=== PATIENT | male | born 1950 | race Caucasian/White ===

== ENCOUNTER 2025-02-16 19:53 | Inpatient (IN) | payer OTHER ==
[~2025-02-16 19:53] MED LIST: Iopamidol-370 76% 500 ML MDV (1 ML CHARGE) ONE
[2025-02-16 20:18] LABS: #Basophils 0.11 10x3/uL (0.0-0.2); #Eosinophils 0.18 10x3/uL (0.0-0.7); #Monocytes 0.41 10x3/uL (0.11-0.59); #Neutrophils 3.53 10x3/uL (1.40-6.50); %Basophils 1.5 % (0.0-1.0); %Eosinophils 2.5 % (0.0-10.0); %Lymphocytes 40.7 % (21.0-51.0); %Monocytes 5.7 % (0.0-10.0); %Neutrophils 49.3 % (42.0-75.0); Hematocrit 38.5 % (42.0-52.0); Hemoglobin 13.0 g/dL (14.0-18.0); Mean Corpuscular Hemoglobin 29.8 pg (27.0-31.0); Mean Corpuscular Volume 88.3 fL (78.0-98.0); Platelet Count 185 10x3/uL (130-400); Red Blood Cell (RBC) Count 4.36 mill/uL (4.70-6.10); White Blood Cell (WBC) Count 7.17 10x3/uL (4.8-10.8)
[2025-02-16 20:42] LABS: ALT (SGPT) 21 U/L (Less than 45); AST (SGOT) 33 U/L (11-34); Albumin 4.1 g/dL (3.1-4.5); Alkaline Phosphatase 83 U/L (40-110); Anion Gap 8 mmol/L (10-20); BUN (Urea Nitrogen) 14 mg/dL (8.4-25.7); Bilirubin, Total 0.5 mg/dL (0.3-1.2); Calc. Creatinine Clearance 0 mL/min (70-130); Calcium 9.4 mg/dL (7.8-10.44); Carbon Dioxide 24 mmol/L (23-31); Chloride 103 mmol/L (98-107); Globulin 2.7 g/dL (2.4-3.5); Glucose 425 mg/dL (83-110); Potassium 4.0 mmol/L (3.5-5.1); Sodium 131 mmol/L (136-145)
[2025-02-16 21:49] LABS: Bacteria/HPF None Seen HPF (None Seen); CAUTI Indications for Culture Alt mental st,lethar; Glucose, Urine (Dipstick) Greater than 1000 mg/dL (Negative); Leukocyte Negative Leu/uL (Negative); Protein, Urine (Dipstick) Negative (Neg-Trace); RBC/HPF 0-3 HPF (0-3); Specific Gravity, Urine 1.040 (1.002-1.036); WBC/HPF 0-3 HPF (0-3)
[2025-02-16 21:52] LABS: Urine Culture Reflex No No
[2025-02-16] MEDS ORDERED: Ondansetron PF 4 MG/2 ML Vial IVP PRN (23:33)
[2025-02-16] MEDS ORDERED: Glucagon 1 MG/ML KIT IM PRN (23:39)
[2025-02-16] MEDS ORDERED: Dextrose 50% Abboject 50 ML SYRINGE SLOW IVP PRN (23:39)
[2025-02-17] MEDS: Acetaminophen 325 MG TAB PO PRN (01:39)
[2025-02-17] MEDS: Melatonin 3 MG TAB PO PRN (01:40)
[2025-02-17 01:56] VITALS: BMI 52.1
[2025-02-17 04:28] LABS: #Basophils 0.08 10x3/uL (0.0-0.2); #Eosinophils 0.18 10x3/uL (0.0-0.7); #Monocytes 0.37 10x3/uL (0.11-0.59); #Neutrophils 3.09 10x3/uL (1.40-6.50); %Basophils 1.2 % (0.0-1.0); %Eosinophils 2.6 % (0.0-10.0); %Lymphocytes 46.0 % (21.0-51.0); %Monocytes 5.3 % (0.0-10.0); %Neutrophils 44.6 % (42.0-75.0); Hematocrit 36.8 % (42.0-52.0); Hemoglobin 12.2 g/dL (14.0-18.0); Mean Corpuscular Hemoglobin 29.6 pg (27.0-31.0); Mean Corpuscular Volume 89.3 fL (78.0-98.0); Platelet Count 171 10x3/uL (130-400); Red Blood Cell (RBC) Count 4.12 mill/uL (4.70-6.10); White Blood Cell (WBC) Count 6.92 10x3/uL (4.8-10.8)
[2025-02-17 04:47] LABS: Anion Gap 12 mmol/L (10-20); BUN (Urea Nitrogen) 12 mg/dL (8.4-25.7); Calc. Creatinine Clearance 126 mL/min (70-130); Calcium 9.2 mg/dL (7.8-10.44); Carbon Dioxide 27 mmol/L (23-31); Cardiac Risk 7.8 (Less than 4.5); Chloride 98 mmol/L (98-107); Cholesterol 318 mg/dl (< 200 Desired); Glucose 302 mg/dL (83-110); HDL Cholesterol 41 mg/dL (>60 Neg Risk); LDL Cholesterol, Calculated 245 mg/dL; Potassium 3.7 mmol/L (3.5-5.1); Sodium 133 mmol/L (136-145); Triglycerides 160 mg/dL (Less than 150)
[2025-02-17] MEDS: Divalproex Sodium DR 500 MG TAB PO SCH (10:03)
[2025-02-17] MEDS: Aspirin 81 mg Enteric Coated Tablet PO SCH (10:03)
[2025-02-17] MEDS: Insulin NPH Human Isophane 100 UNITS/ML (10 ML VIAL) SC SCH ×2 (15:39→21:13)
[2025-02-18 04:38] LABS: #Basophils 0.07 10x3/uL (0.0-0.2); #Eosinophils 0.19 10x3/uL (0.0-0.7); #Monocytes 0.34 10x3/uL (0.11-0.59); #Neutrophils 2.45 10x3/uL (1.40-6.50); %Basophils 1.1 % (0.0-1.0); %Eosinophils 3.0 % (0.0-10.0); %Lymphocytes 51.1 % (21.0-51.0); %Monocytes 5.4 % (0.0-10.0); %Neutrophils 39.1 % (42.0-75.0); Hematocrit 37.6 % (42.0-52.0); Hemoglobin 12.4 g/dL (14.0-18.0); Mean Corpuscular Hemoglobin 30.0 pg (27.0-31.0); Mean Corpuscular Volume 90.8 fL (78.0-98.0); Platelet Count 180 10x3/uL (130-400); Red Blood Cell (RBC) Count 4.14 mill/uL (4.70-6.10); White Blood Cell (WBC) Count 6.28 10x3/uL (4.8-10.8)
[2025-02-18 04:52] LABS: Anion Gap 10 mmol/L (10-20); BUN (Urea Nitrogen) 12 mg/dL (8.4-25.7); Calc. Creatinine Clearance 113 mL/min (70-130); Calcium 9.6 mg/dL (7.8-10.44); Carbon Dioxide 30 mmol/L (23-31); Chloride 96 mmol/L (98-107); Glucose 268 mg/dL (83-110); Potassium 4.1 mmol/L (3.5-5.1); Sodium 132 mmol/L (136-145)
[2025-02-18] MEDS ORDERED: Nitroglycerin 0.4 MG TAB (25 Tab Bottle) SL PRN (11:03)
[2025-02-18] MEDS: Enoxaparin 40 MG (0.4 mL) SYRINGE SC SCH (12:22)
[2025-02-18] MEDS: Baclofen 10 MG TAB PO SCH ×2 (18:01→21:27)
[2025-02-18] MEDS: Aspirin 81 mg Enteric Coated Tablet PO SCH (21:21)
[2025-02-18] MEDS: Lactulose 20 GM (30 mL) UDCUP PO SCH (21:27)
[2025-02-19 08:50] LABS: #Basophils 0.11 10x3/uL (0.0-0.2); #Eosinophils 0.21 10x3/uL (0.0-0.7); #Monocytes 0.31 10x3/uL (0.11-0.59); #Neutrophils 2.37 10x3/uL (1.40-6.50); %Basophils 1.9 % (0.0-1.0); %Eosinophils 3.7 % (0.0-10.0); %Lymphocytes 46.8 % (21.0-51.0); %Monocytes 5.5 % (0.0-10.0); %Neutrophils 41.9 % (42.0-75.0); Hematocrit 40.4 % (42.0-52.0); Hemoglobin 13.2 g/dL (14.0-18.0); Mean Corpuscular Hemoglobin 29.9 pg (27.0-31.0); Mean Corpuscular Volume 91.4 fL (78.0-98.0); Platelet Count 179 10x3/uL (130-400); Red Blood Cell (RBC) Count 4.42 mill/uL (4.70-6.10); White Blood Cell (WBC) Count 5.66 10x3/uL (4.8-10.8)
[2025-02-19 09:05] LABS: Anion Gap 11 mmol/L (10-20); BUN (Urea Nitrogen) 13 mg/dL (8.4-25.7); Calc. Creatinine Clearance 127 mL/min (70-130); Calcium 9.1 mg/dL (7.8-10.44); Carbon Dioxide 32 mmol/L (23-31); Chloride 96 mmol/L (98-107); Glucose 221 mg/dL (83-110); Potassium 4.1 mmol/L (3.5-5.1); Sodium 135 mmol/L (136-145)
[2025-02-19] MEDS: Baclofen 10 MG TAB PO SCH (12:02)
[2025-02-19] MEDS: Lisinopril 2.5 MG TAB PO SCH (12:04)
[2025-02-20 04:11] LABS: #Basophils 0.09 10x3/uL (0.0-0.2); #Eosinophils 0.25 10x3/uL (0.0-0.7); #Monocytes 0.34 10x3/uL (0.11-0.59); #Neutrophils 2.63 10x3/uL (1.40-6.50); %Basophils 1.4 % (0.0-1.0); %Eosinophils 4.0 % (0.0-10.0); %Lymphocytes 46.5 % (21.0-51.0); %Monocytes 5.5 % (0.0-10.0); %Neutrophils 42.4 % (42.0-75.0); Hematocrit 39.2 % (42.0-52.0); Hemoglobin 12.9 g/dL (14.0-18.0); Mean Corpuscular Hemoglobin 29.8 pg (27.0-31.0); Mean Corpuscular Volume 90.5 fL (78.0-98.0); Platelet Count 178 10x3/uL (130-400); Red Blood Cell (RBC) Count 4.33 mill/uL (4.70-6.10); White Blood Cell (WBC) Count 6.21 10x3/uL (4.8-10.8)
[2025-02-20 04:47] LABS: Anion Gap 12 mmol/L (10-20); BUN (Urea Nitrogen) 15 mg/dL (8.4-25.7); Calc. Creatinine Clearance 134 mL/min (70-130); Calcium 9.0 mg/dL (7.8-10.44); Carbon Dioxide 28 mmol/L (23-31); Chloride 97 mmol/L (98-107); Glucose 186 mg/dL (83-110); Potassium 4.2 mmol/L (3.5-5.1); Sodium 133 mmol/L (136-145)
[2025-02-20] MEDS: Gabapentin 100 MG CAP PO SCH (14:33)
[2025-02-21 04:13] LABS: #Basophils 0.10 10x3/uL (0.0-0.2); #Eosinophils 0.32 10x3/uL (0.0-0.7); #Monocytes 0.51 10x3/uL (0.11-0.59); #Neutrophils 2.82 10x3/uL (1.40-6.50); %Basophils 1.4 % (0.0-1.0); %Eosinophils 4.3 % (0.0-10.0); %Lymphocytes 48.8 % (21.0-51.0); %Monocytes 6.9 % (0.0-10.0); %Neutrophils 38.2 % (42.0-75.0); Hematocrit 36.4 % (42.0-52.0); Hemoglobin 11.9 g/dL (14.0-18.0); Mean Corpuscular Hemoglobin 30.4 pg (27.0-31.0); Mean Corpuscular Volume 92.9 fL (78.0-98.0); Platelet Count 184 10x3/uL (130-400); Red Blood Cell (RBC) Count 3.92 mill/uL (4.70-6.10); White Blood Cell (WBC) Count 7.38 10x3/uL (4.8-10.8)
[2025-02-21 04:34] LABS: Anion Gap 12 mmol/L (10-20); BUN (Urea Nitrogen) 17 mg/dL (8.4-25.7); Calc. Creatinine Clearance 98 mL/min (70-130); Calcium 9.4 mg/dL (7.8-10.44); Carbon Dioxide 30 mmol/L (23-31); Chloride 95 mmol/L (98-107); Glucose 213 mg/dL (83-110); Potassium 4.0 mmol/L (3.5-5.1); Sodium 133 mmol/L (136-145)
[2025-02-21] MEDS: Albumin 25% 25 GM (100 mL) BOT IVPB SCH (06:39)
[2025-02-21 07:00] LABS: Magnesium 2.1 mg/dL (1.6-2.6)
[2025-02-21 07:40] LABS: #Basophils 0.09 10x3/uL (0.0-0.2); #Eosinophils 0.24 10x3/uL (0.0-0.7); #Monocytes 0.40 10x3/uL (0.11-0.59); #Neutrophils 2.52 10x3/uL (1.40-6.50); %Basophils 1.6 % (0.0-1.0); %Eosinophils 4.3 % (0.0-10.0); %Lymphocytes 41.2 % (21.0-51.0); %Monocytes 7.2 % (0.0-10.0); %Neutrophils 45.3 % (42.0-75.0); Hematocrit 36.6 % (42.0-52.0); Hemoglobin 11.6 g/dL (14.0-18.0); Mean Corpuscular Hemoglobin 30.2 pg (27.0-31.0); Mean Corpuscular Volume 95.3 fL (78.0-98.0); Platelet Count 154 10x3/uL (130-400); Red Blood Cell (RBC) Count 3.84 mill/uL (4.70-6.10); White Blood Cell (WBC) Count 5.56 10x3/uL (4.8-10.8)
[2025-02-21 07:42] LABS: Actual Bicarbonate (HCO3v) 24.8 mEq/L (22-28); Base Excess 2.0 mEq/L (-2.0 to +3.0); Calcium, Ionized (venous) 0.97 mmol/L (1.16-1.32); Chloride (VBG) 97 mmol/L (98-106); Hematocrit-VBG 39 % (42.0-52.0); Hemoglobin (Hb) 13.1 g/dL (12.6-17.4); Potassium (VBG) 4.06 mmol/L (3.70-5.30); Sodium 131 mmol/L (133-146)
[2025-02-21 07:58] LABS: ALT (SGPT) 17 U/L (Less than 45); AST (SGOT) 26 U/L (11-34); Albumin 3.6 g/dL (3.1-4.5); Alkaline Phosphatase 66 U/L (40-110); Anion Gap 13 mmol/L (10-20); BUN (Urea Nitrogen) 16 mg/dL (8.4-25.7); Bilirubin, Total 0.5 mg/dL (0.3-1.2); Calc. Creatinine Clearance 107 mL/min (70-130); Calcium 9.1 mg/dL (7.8-10.44); Carbon Dioxide 26 mmol/L (23-31); Chloride 98 mmol/L (98-107); Globulin 2.5 g/dL (2.4-3.5); Glucose 193 mg/dL (83-110); Potassium 4.2 mmol/L (3.5-5.1); Sodium 133 mmol/L (136-145)
[2025-02-21 09:44] LABS: T4 Less than 2.00 ug/dL (4.87-11.72); Thyroid Stimulating Hormone 50.3792 uIU/mL (0.35-4.94)
[2025-02-21 10:25] LABS: Bacteria/HPF None Seen HPF (None Seen); CAUTI Indications for Culture Alt mental st,lethar; Glucose, Urine (Dipstick) Normal (Negative); Leukocyte Negative Leu/uL (Negative); Protein, Urine (Dipstick) Negative (Neg-Trace); RBC/HPF 0-3 HPF (0-3); Specific Gravity, Urine 1.003 (1.002-1.036); WBC/HPF 0-3 HPF (0-3)
[2025-02-21 10:38] LABS: Urine Culture Reflex No No
[2025-02-21] MEDS: metFORMIN XR 500 MG ER.TAB PO SCH (22:47)
[2025-02-21] MEDS: Enoxaparin 40 MG (0.4 mL) SYRINGE SC SCH (22:49)
[2025-02-22 03:58] LABS: #Basophils 0.08 10x3/uL (0.0-0.2); #Eosinophils 0.28 10x3/uL (0.0-0.7); #Monocytes 0.44 10x3/uL (0.11-0.59); #Neutrophils 3.30 10x3/uL (1.40-6.50); %Basophils 1.1 % (0.0-1.0); %Eosinophils 4.0 % (0.0-10.0); %Lymphocytes 41.8 % (21.0-51.0); %Monocytes 6.2 % (0.0-10.0); %Neutrophils 46.6 % (42.0-75.0); Hematocrit 37.8 % (42.0-52.0); Hemoglobin 12.0 g/dL (14.0-18.0); Mean Corpuscular Hemoglobin 29.7 pg (27.0-31.0); Mean Corpuscular Volume 93.6 fL (78.0-98.0); Platelet Count 179 10x3/uL (130-400); Red Blood Cell (RBC) Count 4.04 mill/uL (4.70-6.10); White Blood Cell (WBC) Count 7.08 10x3/uL (4.8-10.8)
[2025-02-22 04:10] LABS: Anion Gap 12 mmol/L (10-20); BUN (Urea Nitrogen) 15 mg/dL (8.4-25.7); Calc. Creatinine Clearance 119 mL/min (70-130); Calcium 9.1 mg/dL (7.8-10.44); Carbon Dioxide 30 mmol/L (23-31); Chloride 98 mmol/L (98-107); Glucose 192 mg/dL (83-110); Potassium 3.8 mmol/L (3.5-5.1); Sodium 136 mmol/L (136-145)
[2025-02-22 10:47] LABS: Actual Bicarbonate (HCO3a) 25.5 mEq/L (22-28); Base Excess (BEa) 0.7 mEq/L (-2.0 to +3.0); CO2 Tension 41.2 mmHg (35.0-45.0); Calcium, Ionized (arterial) 1.16 mmol/L (1.12-1.30); Hematocrit-ABG 38 % (42.0-52.0); Hemoglobin (Hb) 13.0 g/dL (14.0-18.0); O2 Tension (PaO2), arterial 131.6 mmHg (> 70.0); Potassium - ABG Lab 3.97 mmol/L (3.70-5.30); pH, Arterial 7.409 (7.35-7.45)
[2025-02-22 10:54] LABS: ALV-art Gradient 66.450 mmHg (0-20); Puncture Site RR
[2025-02-23 04:00] LABS: #Basophils 0.09 10x3/uL (0.0-0.2); #Eosinophils 0.20 10x3/uL (0.0-0.7); #Monocytes 0.41 10x3/uL (0.11-0.59); #Neutrophils 2.31 10x3/uL (1.40-6.50); %Basophils 1.5 % (0.0-1.0); %Eosinophils 3.2 % (0.0-10.0); %Lymphocytes 51.0 % (21.0-51.0); %Monocytes 6.6 % (0.0-10.0); %Neutrophils 37.4 % (42.0-75.0); Hematocrit 38.7 % (42.0-52.0); Hemoglobin 12.0 g/dL (14.0-18.0); Mean Corpuscular Hemoglobin 29.6 pg (27.0-31.0); Mean Corpuscular Volume 95.3 fL (78.0-98.0); Platelet Count 183 10x3/uL (130-400); Red Blood Cell (RBC) Count 4.06 mill/uL (4.70-6.10); White Blood Cell (WBC) Count 6.18 10x3/uL (4.8-10.8)
[2025-02-23 04:16] LABS: Anion Gap 12 mmol/L (10-20); BUN (Urea Nitrogen) 19 mg/dL (8.4-25.7); Calc. Creatinine Clearance 97 mL/min (70-130); Calcium 9.4 mg/dL (7.8-10.44); Carbon Dioxide 31 mmol/L (23-31); Chloride 98 mmol/L (98-107); Glucose 174 mg/dL (83-110); Potassium 4.1 mmol/L (3.5-5.1); Sodium 137 mmol/L (136-145)
[2025-02-24 04:18] LABS: #Basophils 0.08 10x3/uL (0.0-0.2); #Eosinophils 0.15 10x3/uL (0.0-0.7); #Monocytes 0.49 10x3/uL (0.11-0.59); #Neutrophils 4.25 10x3/uL (1.40-6.50); %Basophils 1.0 % (0.0-1.0); %Eosinophils 1.9 % (0.0-10.0); %Lymphocytes 35.2 % (21.0-51.0); %Monocytes 6.4 % (0.0-10.0); %Neutrophils 55.2 % (42.0-75.0); Hematocrit 35.4 % (42.0-52.0); Hemoglobin 11.5 g/dL (14.0-18.0); Mean Corpuscular Hemoglobin 30.3 pg (27.0-31.0); Mean Corpuscular Volume 93.4 fL (78.0-98.0); Platelet Count 162 10x3/uL (130-400); Red Blood Cell (RBC) Count 3.79 mill/uL (4.70-6.10); White Blood Cell (WBC) Count 7.70 10x3/uL (4.8-10.8)
[2025-02-24 04:34] LABS: Anion Gap 12 mmol/L (10-20); BUN (Urea Nitrogen) 17 mg/dL (8.4-25.7); Calc. Creatinine Clearance 124 mL/min (70-130); Calcium 8.9 mg/dL (7.8-10.44); Carbon Dioxide 28 mmol/L (23-31); Chloride 100 mmol/L (98-107); Glucose 150 mg/dL (83-110); Potassium 3.9 mmol/L (3.5-5.1); Sodium 136 mmol/L (136-145)
[2025-02-24 20:39] VITALS: BMI 52.1
[2025-02-25 04:59] LABS: Anion Gap 10 mmol/L (10-20); BUN (Urea Nitrogen) 13 mg/dL (8.4-25.7); Calc. Creatinine Clearance 127 mL/min (70-130); Calcium 8.9 mg/dL (7.8-10.44); Carbon Dioxide 31 mmol/L (23-31); Chloride 100 mmol/L (98-107); Glucose 142 mg/dL (83-110); Potassium 4.0 mmol/L (3.5-5.1); Sodium 137 mmol/L (136-145)
[2025-02-25 05:35] LABS: #Basophils 0.07 10x3/uL (0.0-0.2); #Eosinophils 0.15 10x3/uL (0.0-0.7); #Monocytes 0.46 10x3/uL (0.11-0.59); #Neutrophils 3.38 10x3/uL (1.40-6.50); %Basophils 1.0 % (0.0-1.0); %Eosinophils 2.2 % (0.0-10.0); %Lymphocytes 38.9 % (21.0-51.0); %Monocytes 6.9 % (0.0-10.0); %Neutrophils 50.7 % (42.0-75.0); Hematocrit 36.3 % (42.0-52.0); Hemoglobin 11.2 g/dL (14.0-18.0); Mean Corpuscular Hemoglobin 29.7 pg (27.0-31.0); Mean Corpuscular Volume 96.3 fL (78.0-98.0); Platelet Count 169 10x3/uL (130-400); Red Blood Cell (RBC) Count 3.77 mill/uL (4.70-6.10); White Blood Cell (WBC) Count 6.68 10x3/uL (4.8-10.8)
[2025-02-25 06:16] LABS: Bacteria/HPF 2+ HPF (None Seen); CAUTI Indications for Culture Dysuria,urgency,freq; Glucose, Urine (Dipstick) Normal (Negative); Leukocyte 500 Leu/uL (Negative); Protein, Urine (Dipstick) 10 mg/dL (Neg-Trace); RBC/HPF 21-50 HPF (0-3); Specific Gravity, Urine 1.021 (1.002-1.036); WBC/HPF Greater than 50 HPF (0-3)
[2025-02-25 06:18] LABS: Urine Culture Reflex Yes Yes
[2025-02-25] MEDS: cefTRIAXone\\ROCEPHIN 1 GM in Sodium Chloride 0.9% 100 ML IVPB SCH (10:30)
[2025-02-26 04:22] LABS: #Basophils 0.07 10x3/uL (0.0-0.2); #Eosinophils 0.12 10x3/uL (0.0-0.7); #Monocytes 0.47 10x3/uL (0.11-0.59); #Neutrophils 3.09 10x3/uL (1.40-6.50); %Basophils 1.1 % (0.0-1.0); %Eosinophils 1.9 % (0.0-10.0); %Lymphocytes 40.9 % (21.0-51.0); %Monocytes 7.3 % (0.0-10.0); %Neutrophils 48.3 % (42.0-75.0); Hematocrit 37.0 % (42.0-52.0); Hemoglobin 11.4 g/dL (14.0-18.0); Mean Corpuscular Hemoglobin 29.5 pg (27.0-31.0); Mean Corpuscular Volume 95.9 fL (78.0-98.0); Platelet Count 153 10x3/uL (130-400); Red Blood Cell (RBC) Count 3.86 mill/uL (4.70-6.10); White Blood Cell (WBC) Count 6.40 10x3/uL (4.8-10.8)
[2025-02-26 05:09] LABS: Anion Gap 12 mmol/L (10-20); BUN (Urea Nitrogen) 13 mg/dL (8.4-25.7); Calc. Creatinine Clearance 127 mL/min (70-130); Calcium 8.8 mg/dL (7.8-10.44); Carbon Dioxide 30 mmol/L (23-31); Chloride 101 mmol/L (98-107); Glucose 148 mg/dL (83-110); Potassium 4.1 mmol/L (3.5-5.1); Sodium 139 mmol/L (136-145)
[2025-02-26] MEDS: Gabapentin 100 MG CAP PO SCH (10:23)
[2025-02-27] MEDS: Cholecalciferol 1,000 UNITS (25 MCG) TAB PO SCH (21:34)
[2025-02-27] MEDS: Multivit, Therapeutic 1 TAB PO SCH (21:34)
[2025-02-27] MEDS: Cyanocobalamin (Vitamin B-12) 1,000 MCG TAB PO SCH (21:34)
[2025-02-28 04:01] LABS: #Basophils 0.10 10x3/uL (0.0-0.2); #Eosinophils 0.17 10x3/uL (0.0-0.7); #Monocytes 0.49 10x3/uL (0.11-0.59); #Neutrophils 2.61 10x3/uL (1.40-6.50); %Basophils 1.4 % (0.0-1.0); %Eosinophils 2.4 % (0.0-10.0); %Lymphocytes 52.2 % (21.0-51.0); %Monocytes 6.9 % (0.0-10.0); %Neutrophils 36.7 % (42.0-75.0); Hematocrit 34.9 % (42.0-52.0); Hemoglobin 10.9 g/dL (14.0-18.0); Mean Corpuscular Hemoglobin 29.8 pg (27.0-31.0); Mean Corpuscular Volume 95.4 fL (78.0-98.0); Platelet Count 156 10x3/uL (130-400); Red Blood Cell (RBC) Count 3.66 mill/uL (4.70-6.10); White Blood Cell (WBC) Count 7.11 10x3/uL (4.8-10.8)
[2025-02-28 04:19] LABS: Anion Gap 14 mmol/L (10-20); BUN (Urea Nitrogen) 22 mg/dL (8.4-25.7); Calc. Creatinine Clearance 111 mL/min (70-130); Calcium 9.0 mg/dL (7.8-10.44); Carbon Dioxide 27 mmol/L (23-31); Chloride 99 mmol/L (98-107); Glucose 170 mg/dL (83-110); Magnesium 2.0 mg/dL (1.6-2.6); Potassium 4.1 mmol/L (3.5-5.1); Sodium 136 mmol/L (136-145)
[2025-02-28] MEDS: Magnesium 2 GM/50 ML(in water) 2 GM in Premix 1 BAG IVPB SCH (11:08)
[2025-03-01] MEDS ORDERED: BENZOCAINE/MENTHOL/ZINC CHLOR 5.1 GM TUBE TOP PRN (10:02)
[2025-03-01] MEDS: Acetaminophen 325 MG TAB PO SCH (15:13)
[2025-03-01] MEDS: BENZOCAINE/MENTHOL/ZINC CHLOR 5.1 GM TUBE TOP SCH (15:19)
[2025-03-01] MEDS: Transdermal Patch Removal TOP SCH (22:58)
[2025-03-02 04:06] LABS: #Basophils 0.10 10x3/uL (0.0-0.2); #Eosinophils 0.21 10x3/uL (0.0-0.7); #Monocytes 0.58 10x3/uL (0.11-0.59); #Neutrophils 2.56 10x3/uL (1.40-6.50); %Basophils 1.4 % (0.0-1.0); %Eosinophils 3.0 % (0.0-10.0); %Lymphocytes 50.6 % (21.0-51.0); %Monocytes 8.3 % (0.0-10.0); %Neutrophils 36.4 % (42.0-75.0); Hematocrit 33.8 % (42.0-52.0); Hemoglobin 10.5 g/dL (14.0-18.0); Mean Corpuscular Hemoglobin 29.7 pg (27.0-31.0); Mean Corpuscular Volume 95.5 fL (78.0-98.0); Platelet Count 156 10x3/uL (130-400); Red Blood Cell (RBC) Count 3.54 mill/uL (4.70-6.10); White Blood Cell (WBC) Count 7.03 10x3/uL (4.8-10.8)
[2025-03-02 04:17] LABS: Anion Gap 11 mmol/L (10-20); BUN (Urea Nitrogen) 22 mg/dL (8.4-25.7); Calc. Creatinine Clearance 115 mL/min (70-130); Calcium 8.9 mg/dL (7.8-10.44); Carbon Dioxide 29 mmol/L (23-31); Chloride 102 mmol/L (98-107); Glucose 162 mg/dL (83-110); Magnesium 2.1 mg/dL (1.6-2.6); Potassium 4.5 mmol/L (3.5-5.1); Sodium 137 mmol/L (136-145)
[2025-03-02] MEDS: Acetaminophen 325 MG TAB PO PRN (09:12)
[2025-03-04] MEDS: Gabapentin 300 MG CAP PO SCH (20:55)
[2025-03-09 04:25] LABS: Hematocrit 32.7 % (42.0-52.0); Hemoglobin 10.4 g/dL (14.0-18.0); Mean Corpuscular Hemoglobin 30.3 pg (27.0-31.0); Mean Corpuscular Volume 95.3 fL (78.0-98.0); Platelet Count 139 10x3/uL (130-400); Red Blood Cell (RBC) Count 3.43 mill/uL (4.70-6.10); White Blood Cell (WBC) Count 6.31 10x3/uL (4.8-10.8)
[2025-03-09 04:26] LABS: Anion Gap 12 mmol/L (10-20); BUN (Urea Nitrogen) 21 mg/dL (8.4-25.7); Calc. Creatinine Clearance 145 mL/min (70-130); Calcium 8.6 mg/dL (7.8-10.44); Carbon Dioxide 28 mmol/L (23-31); Chloride 102 mmol/L (98-107); Glucose 108 mg/dL (83-110); Potassium 4.3 mmol/L (3.5-5.1); Sodium 138 mmol/L (136-145)
[2025-03-10 05:24] LABS: Free T4 (Free Thyroxine) 0.62 ng/dL (0.70-1.48); Thyroid Stimulating Hormone 20.9545 uIU/mL (0.35-4.94)
[2025-03-10] MEDS: HYDROcodone/Acetaminophen 7.5/325 mg Tablet PO SCH (12:41)
[2025-03-10] MEDS: Insulin Glargine 30 UNITS/0.3 ML VIAL SC SCH (12:43)
[2025-03-12 19:12] VITALS: BP 96/60; TEMP 98.1
[2025-03-12] MEDS ORDERED: Senokot S 8.6-50 MG TAB PO SCH (21:00)
== END 2025-03-12 20:13 | disposition short-term general hospital (02) | DRG 71 ==
LOC: ERS 19:53 → EEVIPCON 19:53 → 2SE 23:33 → OBSVTOIN 02-18 15:26 → EEVIPCON 02-18 15:26 → CCU 02-21 07:47 → 2SE 02-21 18:01 → MSONC 03-10 21:48
PROVIDERS: ADMIT Internal Medicine; ATTEND Internal Medicine
PROC: 30233J1 Transfusion of Nonautologous Serum Albumin into Peripheral Vein, Percutaneous Approach (ICD-10-PCS; 2025-02-21)
PROC: 5A09357 Assistance with Respiratory Ventilation, Less than 24 Consecutive Hours, Continuous Positive Airway Pressure (ICD-10-PCS; 2025-02-21)
PROC: 4A033R1 Measurement of Arterial Saturation, Peripheral, Percutaneous Approach (ICD-10-PCS; principal; 2025-02-22)
PROC: 3E03329 Introduction of Other Anti-infective into Peripheral Vein, Percutaneous Approach (ICD-10-PCS; 2025-02-25)
PROC: 05HY33Z Insertion of Infusion Device into Upper Vein, Percutaneous Approach (ICD-10-PCS; 2025-03-01)
PROC: 3E04329 Introduction of Other Anti-infective into Central Vein, Percutaneous Approach (ICD-10-PCS; 2025-03-01)
DX: G93.40 Encephalopathy, unspecified (principal); E87.1 Hypo-osmolality and hyponatremia; G45.9 Transient cerebral ischemic attack, unspecified; I13.0 Hypertensive heart and chronic kidney disease with heart failure and stage 1 through stage 4 chronic kidney disease, or unspecified chronic kidney disease; Z68.43 Body mass index [BMI] 50.0-59.9, adult; I50.32 Chronic diastolic (congestive) heart failure; N39.0 Urinary tract infection, site not specified; Z66 Do not resuscitate; E78.5 Hyperlipidemia, unspecified; R47.81 Slurred speech; E03.9 Hypothyroidism, unspecified; E11.22 Type 2 diabetes mellitus with diabetic chronic kidney disease; E66.01 Morbid (severe) obesity due to excess calories; G56.20 Lesion of ulnar nerve, unspecified upper limb; G56.00 Carpal tunnel syndrome, unspecified upper limb; I95.9 Hypotension, unspecified; R00.1 Bradycardia, unspecified; G43.909 Migraine, unspecified, not intractable, without status migrainosus; M79.7 Fibromyalgia; F31.9 Bipolar disorder, unspecified; N18.30 Chronic kidney disease, stage 3 unspecified; R55 Syncope and collapse; E83.42 Hypomagnesemia; B96.4 Proteus (mirabilis) (morganii) as the cause of diseases classified elsewhere; M48.02 Spinal stenosis, cervical region; D63.1 Anemia in chronic kidney disease; R07.9 Chest pain, unspecified; E11.65 Type 2 diabetes mellitus with hyperglycemia; G47.33 Obstructive sleep apnea (adult) (pediatric); Z79.899 Other long term (current) drug therapy; Z79.82 Long term (current) use of aspirin; Z79.890 Hormone replacement therapy; Z79.84 Long term (current) use of oral hypoglycemic drugs
CPT/HCPCS: 36415; 36416; 70450; 70496; 70498; 70553; 71045; 72125; 72141; 72146; 72148; 76376; 78452; 80048; 80053; 80061; 81001; 82533; 82805; 83036; 83605; 83735; 83880; 84146; 84436; 84439; 84443; 84484; 85025; 85027; 86141; 87040; 87077; 87086; 87186; 93005; 93010; 93017; 93306; 93970; 94660; 94760; 95700; 95705; 95711; 95957; 96372; 96374; 96375; A9502; G0378; J0696; J1650; J1815; J2060; J2185; J2785; J3475; J7030; P9047; Q9967